=== PATIENT | male | born 2000 | race Hispanic/Latino ===

== ENCOUNTER 2021-01-06 19:41 | Observation (INO) | payer OTHER ==
[~2021-01-06] VITALS: Ht 172.7 cm; Wt 65.1 kg
[2021-01-06] MEDS ORDERED: ONDANSETRON 4MG/2ML VIAL IV ONE (20:10)
[2021-01-06] MEDS ORDERED: NS 1,000 ML IV ONE (20:10)
[2021-01-06 20:50] LABS: BASO # 0.1 10^3/uL (0.0-0.2); BASO % 0.5 % (0.0-1.0); EOS # 0.1 10^3/uL (0.0-0.5); EOS % 0.8 % (0.0-3.0); HEMATOCRIT 47.2 % (42.0-52.0); HEMOGLOBIN 15.2 g/dl (13.5-17.5); LYMPH # 1.5 10^3/uL (1.5-5.0); LYMPH % 14.3 % (24.0-44.0); MEAN CORPUSCULAR HEMOGLOBIN 27.9 pg (27.0-33.0); MEAN CORPUSCULAR HGB CONC 32.2 g/dl (32.0-36.5); MEAN CORPUSCULAR VOLUME 86.8 fl (80.0-96.0); MONO # 0.7 10^3/uL (0.0-0.8); MONO % 6.7 % (2.0-8.0); NEUTROPHILS # 8.3 10^3/uL (1.5-8.5); NEUTROPHILS % 77.4 % (36.0-66.0); PLATELET COUNT, AUTOMATED 251 10^3/uL (150-450); RED BLOOD COUNT 5.44 10^6/uL (4.30-6.10); WHITE BLOOD COUNT 10.7 10^3/uL (4.0-10.0)
[2021-01-06 21:15] LABS: ALBUMIN 4.5 GM/DL (3.2-5.2); ALT/SGPT 28 U/L (12-78); BILIRUBIN,DIRECT 0.1 MG/DL (0.0-0.2); BILIRUBIN,TOTAL 0.4 MG/DL (0.2-1.0); BLOOD UREA NITROGEN 17 MG/DL (7-18); CARBON DIOXIDE LEVEL 30 MEQ/L (21-32); CHLORIDE LEVEL 103 MEQ/L (98-107); CREATININE FOR GFR 0.78 MG/DL (0.70-1.30); GLUCOSE, FASTING 87 MG/DL (70-100); SODIUM LEVEL 138 MEQ/L (136-145); TOTAL PROTEIN 7.5 GM/DL (6.4-8.2)
[2021-01-06 21:16] LABS: LIPASE 81 U/L (73-393)
[2021-01-06] MEDS ORDERED: ISOVUE-370 76% 100ML VIAL As Ordered ONE (21:26)
--- NOTE | 2021-01-06 22:27 | REPVR ---
PROCEDURE INFORMATION: Exam: CT Abdomen And Pelvis With Contrast Exam date and time: 01/06/2021 10:07 PM Age: 20 years old Clinical indication: Abdominal pain; Periumbilical; Additional info: Right periumbilical pain TECHNIQUE: Imaging protocol: Computed tomography of the abdomen and pelvis with contrast. Axial, coronal and sagittal reformatted images were created and reviewed. Radiation optimization: All CT scans at this facility use at least one of these dose optimization techniques: automated exposure control; mA and/or kV adjustment per patient size (includes targeted exams where dose is matched to clinical indication); or iterative reconstruction. Contrast material: ISOVUE 370; Contrast volume: 100 ml; Contrast route: INTRAVENOUS (IV); COMPARISON: No relevant prior studies available. FINDINGS: Liver: Unremarkable. Gallbladder and bile ducts: No radiodense gallstones. No biliary ductal dilatation. Pancreas: Unremarkable. Spleen: Unremarkable. Adrenal glands: Normal. No mass. Kidneys and ureters: No mass. No radiodense calculi. No hydronephrosis. Stomach and bowel: Multiple dilated, somewhat fecalized loops of small bowel in the right mid abdomen. Moderate amount of retained stool in the colon. No definite bowel wall thickening. No pneumatosis. Appendix: Normal. Intraperitoneal space: Mild infiltration of the mesenteric fat in the right mid abdomen with a small amount of associated fluid. No organized collection. No free air. Vasculature: Unremarkable. No aneurysm. Lymph nodes: No pathologically enlarged lymph nodes. Urinary bladder: Unremarkable as visualized. Reproductive: Unremarkable. Bones/joints: No acute osseous abnormality. Soft tissues: Unremarkable. IMPRESSION: 1. Small bowel obstruction in the right mid abdomen, as described above. Query internal hernia. 2. Additional findings, as above. Electronically signed by: Lauro Eugene On 01/06/2021 22:27:31 PM
[2021-01-06] MEDS ORDERED: NS 500 ML IV ONE (22:50)
[2021-01-06] MEDS ORDERED: MORPHINE 2 MG/ML 1ML VIAL (J2270) IV PRN (23:20)
[2021-01-06] MEDS ORDERED: ONDANSETRON 4MG/2ML VIAL IV PRN (23:20)
[2021-01-06] MEDS ORDERED: KETOROLAC 30 MG/ML 1ML VIAL IV PRN (23:20)
[2021-01-06] MEDS ORDERED: NS 1,000 ML IV SCH (23:20)
[2021-01-07] MEDS: NS 1,000 ML IV SCH ×3 (01:05→08:38)
[2021-01-07 02:40] VITALS: BP 117/72
[2021-01-07 06:00] VITALS: BP 118/71
[2021-01-07 06:22] LABS: HEMATOCRIT 41.4 % (42.0-52.0); HEMOGLOBIN 13.4 g/dl (13.5-17.5); MEAN CORPUSCULAR HEMOGLOBIN 28.1 pg (27.0-33.0); MEAN CORPUSCULAR HGB CONC 32.4 g/dl (32.0-36.5); MEAN CORPUSCULAR VOLUME 86.8 fl (80.0-96.0); PLATELET COUNT, AUTOMATED 208 10^3/uL (150-450); RED BLOOD COUNT 4.77 10^6/uL (4.30-6.10); WHITE BLOOD COUNT 5.5 10^3/uL (4.0-10.0)
[2021-01-07 06:49] LABS: BLOOD UREA NITROGEN 13 MG/DL (7-18); CALCIUM LEVEL 9.2 MG/DL (8.5-10.1); CARBON DIOXIDE LEVEL 28 MEQ/L (21-32); CHLORIDE LEVEL 108 MEQ/L (98-107); CREATININE FOR GFR 0.72 MG/DL (0.70-1.30); GLUCOSE, FASTING 84 MG/DL (70-100); POTASSIUM SERUM 3.7 MEQ/L (3.5-5.1); SODIUM LEVEL 140 MEQ/L (136-145)
[2021-01-07] MEDS: PANTOPRAZOLE 40MG VIAL (C9113 PER 1) IV SCH (08:38)
[2021-01-07 10:00] VITALS: BP 109/60
--- NOTE | 2021-01-07 10:58 | IPN ---
PROGRESS NOTE DATE: 01/07/2021 SUBJECTIVE: The patient was admitted last night for a small bowel obstruction. This seemed to be a partial obstruction. The patient had some flatus overnight, states his abdominal pain is mostly resolved, and still having flatus this morning. He has been afebrile. His vital signs have been stable. He has had good urine output. OBJECTIVE: His abdominal exam reveals decreased abdominal distention. His lungs are clear. His heart is regular. He has no peritoneal signs. ASSESSMENT/PLAN: The patient has probably resolving partial small bowel obstruction. We will start him on a clear liquid diet, discontinue the intravenous (IV) fluids, and if he is doing well with that may progress his diet later on today. Otherwise, we will continue with supportive care at this time.
--- NOTE | 2021-01-07 10:58 | HPE ---
HISTORY AND PHYSICAL DATE OF ADMISSION: 01/06/2021 CHIEF COMPLAINT: Recurrent small bowel obstruction. BRIEF HISTORY OF PRESENT ILLNESS: Patient is a 20-year-old black male who has had a perforated appendicitis in the past and it sounds as though when he describes the perforated appendicitis that it required a partial bowel removal which I anticipate somehow he means that the cecum was involved with this resection but then ended up having a small bowel resection again postoperatively, required operative intervention and a small bowel resection, and then again last summer he had some adhesions causing partial obstructive symptoms that he underwent a laparotomy with lysis of adhesions. In any case, he presents with a 4 hour history of some crampy abdominal pain in the mid abdomen with some nausea without vomiting, abdominal distention without fevers or chills. No diarrhea. No bowel movement. He is still having some flatus. He states that his abdominal pain is not as severe as when he had his bowel obstruction. PAST MEDICAL HISTORY: History of appendectomy (perforated), history of reported bowel resection, history of small bowel obstruction. MEDICATIONS: None. ALLERGIES: None. PHYSICAL EXAMINATION: A 20-year-old male who looks stated age. HEENT: Unremarkable. Neck is supple without adenopathy. Lungs are clear to auscultation. Heart is regular. Abdomen is softly distended although he states he is less distended than he was when he initially came to the Emergency Room, he is still passing flatus and he does not have any nausea or vomiting. IMPRESSION AND PLAN: Patient has probably a partial obstruction and at this point my recommendation is that we keep him NPO, we will give him IV fluids and we will see how he does overnight. If he makes some progress, we may be able to progress his diet tomorrow and advance him as tolerated depending on how he is doing but otherwise at this point it sounds as though it is not a complete obstruction given his improvement of symptoms just here in the Emergency Room. I anticipate that is most likely secondary to adhesions as he had previously. We will see how he is doing over the ensuing few hours and then determine our next course of action depending on this.
[2021-01-07 14:00] VITALS: BP 115/75
[2021-01-07 22:00] VITALS: BP 115/67
[2021-01-08 02:00] VITALS: BP 124/60
[2021-01-08 06:00] VITALS: BP 120/62
[2021-01-08 07:22] LABS: HEMATOCRIT 43.7 % (42.0-52.0); HEMOGLOBIN 13.9 g/dl (13.5-17.5); MEAN CORPUSCULAR HGB CONC 31.8 g/dl (32.0-36.5); MEAN CORPUSCULAR VOLUME 87.9 fl (80.0-96.0); PLATELET COUNT, AUTOMATED 226 10^3/uL (150-450); RED BLOOD COUNT 4.97 10^6/uL (4.30-6.10); WHITE BLOOD COUNT 4.8 10^3/uL (4.0-10.0)
[2021-01-08 07:34] LABS: BLOOD UREA NITROGEN 11 MG/DL (7-18); CALCIUM LEVEL 9.5 MG/DL (8.5-10.1); CARBON DIOXIDE LEVEL 27 MEQ/L (21-32); CHLORIDE LEVEL 107 MEQ/L (98-107); CREATININE FOR GFR 0.84 MG/DL (0.70-1.30); GLUCOSE, FASTING 86 MG/DL (70-100); POTASSIUM SERUM 3.8 MEQ/L (3.5-5.1); SODIUM LEVEL 138 MEQ/L (136-145)
[2021-01-08] MEDS: PANTOPRAZOLE 40MG VIAL (C9113 PER 1) IV SCH (09:00)
--- NOTE | 2021-01-08 11:19 | DS.PDOC ---
Discharge Summary General Date of Admission Jan 06, 2021 at 19:42 Date of Discharge 01/08/21 Discharge Summary PROCEDURES PERFORMED DURING STAY: None. ADMITTING DIAGNOSES: Partial bowel obstruction History of bowel obstruction History of appendectomy History of bowel resection Laparotomy 2019 with lysis of adhesions DISCHARGE DIAGNOSES: Partial bowel obstructionresolved History of bowel obstruction History of appendectomy History of bowel resection Laparotomy 2019 with lysis of adhesions HISTORY OF PRESENT ILLNESS: The patient is a 20-year-old male with history of perforated appendicitis in the past which required a partial bowel resection and history of adhesions with bowel obstruction status post laparotomy 2019 with lysis of adhesions. The patient reported a 4 hour history of crampy abdominal pain in the mid abdomen with nausea, no vomiting. There was some abdominal distention. HOSPITAL COURSE: The patient was admitted 01/06/21 to Gen. surgery for probable partial bowel obstruction. Initially the patient was NPO, IV fluids for supportive care. By 01/07/21 the patient reported he was feeling much better. He reported flatus and abdominal pain was almost entirely resolved, distention was improved. The patient was started on clear liquids which he tolerated well. By 01/08/21 the patient was advanced to regular diet and was not reporting any abdominal pain, abdominal distention, nausea or vomiting. Patient was reporting flatus. The patient was felt stable for discharge with outpatient follow-up. DISCHARGE MEDICATIONS: Please see below. ALLERGIES: Please see below. PHYSICAL EXAMINATION ON DISCHARGE: VITAL SIGNS: Please see below. GENERAL: No acute distress, sitting up in bed HEENT: Moist mucous membranes CARDIOVASCULAR EXAMINATION: S1-S2 regular rate and rhythm RESPIRATORY EXAMINATION: Clear to auscultation ABDOMINAL EXAMINATION: Flat, soft, nondistended, nontender. Bowel sounds present. EXTREMITIES: No edema, well perfused LABORATORY DATA: Please see below. IMAGIN01/06/21 CT abdomen/pelvis IMPRESSION: 1. Small bowel obstruction in the right mid abdomen, as described above. Query internal hernia. 2. Additional findings, as above. Electronically signed by: Lauro Eugene On 01/06/2021 22:27:31 PM DISCHARGE INSTRUCTIONS: Discharge home Activity as tolerated Regular diet Follow-up in [address] Pritchett. DISCHARGE CONDITION: Stable. TIME SPENT ON DISCHARGE: Greater than 30 minutes. Vital Signs/I&Os Vital Signs Date Time Temp Pulse Resp B/P (MAP) Pulse Ox O2 Delivery O2 Flow Rate FiO2 01/08/21 06:00 97.2 62 18 120/62 (81) 100 Room Air I&O- Last 24 Hours up to 6 AM 01/08/21 06:00 Intake Total 3610 ml Output Total 2350 ml Balance 1260 ml Laboratory Data Labs 24H Laboratory Tests 2 01/08/21 06:40: Nucleated Red Blood Cells % (auto) 0.0, Anion Gap 4L, Calcium Level 9.5 CBC/BMP Laboratory Tests 01/08/21 06:40 Microbiology Microbiology 01/06/21 Respiratory Virus Panel (PCR) ([facility]) - Final, Complete Discharge Medications No Active Prescriptions or Reported Meds Allergies Coded Allergies: No Known Drug Allergies (Verified Allergy, Unknown, 01/06/21) Laury Pike Jan 08, 2021 11:19
== END 2021-01-08 11:23 | disposition home or self-care (01) ==
LOC: M ED 19:41 → EDBD 19:41 → M ED INP 19:42 → ENRESERV 01-07 02:22 → M MSPAV 01-07 02:40
PROVIDERS: ADMIT Surgery; ATTEND Surgery
DX: K56.690 Other partial intestinal obstruction (principal)
CPT/HCPCS: 36415; 74177; 80048; 80076; 81001; 83605; 83690; 85025; 85027; 86850; 86900; 86901; 87798; 93041; 96361; 96374; 99285; C9113; J2405; Q9967